=== PATIENT | female | born 1955 | race Caucasian/White ===

== ENCOUNTER → 2018-12-18 | Outpatient (CLI) | payer BC, MEDICARE | END | disposition home or self-care (01) | LOC: CFH 10:25 | PROVIDERS: ATTEND Internal Medicine Cardiovascular Disease | DX: I08.1 Rheumatic disorders of both mitral and tricuspid valves (principal); I35.8 Other nonrheumatic aortic valve disorders; I11.0 Hypertensive heart disease with heart failure; I50.9 Heart failure, unspecified; I51.81 Takotsubo syndrome | CPT/HCPCS: 93306 ==

== ENCOUNTER → 2020-01-21 | Outpatient (CLI) | payer MEDICARE, BC | END | disposition home or self-care (01) | LOC: CVU 12:32 | PROVIDERS: ATTEND Internal Medicine Cardiovascular Disease | DX: I08.2 Rheumatic disorders of both aortic and tricuspid valves (principal); I10 Essential (primary) hypertension | CPT/HCPCS: 93306 ==